=== PATIENT | female | born 1940 | race Caucasian/White ===

== ENCOUNTER 2019-03-29 10:07 | Outpatient (CLI) | payer MEDICARE ==
[2019-03-29] MEDS ORDERED: LISI40TA PO (10:55)
[2019-03-29] MEDS ORDERED: AMLO10TA8 PO (10:55)
[2019-03-29] MEDS ORDERED: ASPI-496 PO (10:55)
[2019-03-29] MEDS ORDERED: LOVA40TA2 PO (10:55)
[2019-03-29] MEDS ORDERED: MULT-658 PO (11:09)
[2019-03-29] MEDS ORDERED: OMEG1CAP6 PO (11:09)
[2019-03-29] MEDS ORDERED: FLAX340P PO (11:09)
[2019-03-29] MEDS ORDERED: Turmeric PO (11:09)
[2019-03-29] MEDS ORDERED: CALC1CAP8 PO (11:09)
== END 2019-03-29 23:59 | disposition home or self-care (01) ==
LOC: STAR 10:07
PROVIDERS: ATTEND Surgery
DX: Z01.810 Encounter for preprocedural cardiovascular examination (principal); C73 Malignant neoplasm of thyroid gland
CPT/HCPCS: 93005

== ENCOUNTER 2019-04-02 05:59 | Day surgery (SDC) | payer MEDICARE ==
[~2019-04-02] VITALS: Ht 156.2 cm; Wt 76.6 kg
[~2019-04-02 05:59] MED LIST: AMLO10TA8 PO; ASPI-496 PO; CALC1CAP8 PO; FLAX340P PO; LISI40TA PO; LOVA40TA2 PO; MULT-658 PO; OMEG1CAP6 PO; Turmeric PO
[2019-04-02] MEDS ORDERED: LACTATED RINGERS 1,000 ML IV SCH (06:59)
[2019-04-02] MEDS ORDERED: MIDAZOLAM 1 MG/ML, 2ML ONE (07:15)
[2019-04-02] MEDS ORDERED: FENTANYL PF 250 MCG/5ML ONE (07:16)
[2019-04-02] MEDS ORDERED: LIDOCAINE 2%, 6 ML JEL.PF.APP MM ONE (07:16)
[2019-04-02] MEDS ORDERED: PROPOFOL 10 MG/ML, 20ML ONE (07:16)
[2019-04-02] MEDS ORDERED: DEXAMETHASONE 4 MG/ML, 1ML ONE ×2 (07:18)
[2019-04-02] MEDS ORDERED: ROCURONIUM 10MG/ML,5ML ONE (07:18)
[2019-04-02] MEDS ORDERED: SUCCINYLCHOLINE 20 MG/ML, 10ML ONE (07:18)
[2019-04-02] MEDS ORDERED: CEFAZOLIN 1,000 MG ONE ×2 (07:18)
[2019-04-02] MEDS ORDERED: LIDOCAINE-MPF 2% ,5ML ONE (07:18)
[2019-04-02] MEDS ORDERED: EPHEDRINE 50 MG/ML, 1ML ONE (07:27)
[2019-04-02] MEDS ORDERED: HALOPERIDOL 5 MG/ML IV PRN (08:00)
[2019-04-02] MEDS ORDERED: EPHEDRINE 50 MG/ML, 1ML IVPush PRN (08:00)
[2019-04-02] MEDS ORDERED: MEPERIDINE/PF 25MG/0.5ML IVPush PRN (08:00)
[2019-04-02] MEDS ORDERED: ALBUTEROL SULFATE 2.5 MG/3 ML NPPB PRN (08:00)
[2019-04-02] MEDS ORDERED: ONDANSETRON 2MG/ML, 2ML IV PRN (08:00)
[2019-04-02] MEDS ORDERED: MORPHINE SULFATE 4 MG/ML, 1ML IVPush PRN (08:00)
[2019-04-02] MEDS ORDERED: DIAZEPAM 5 MG/ML, 2ML IVPush PRN (08:00)
[2019-04-02] MEDS ORDERED: ONDANSETRON ODT 8 MG PO PRN (08:00)
[2019-04-02] MEDS ORDERED: PROMETHAZINE 25 MG/ML, 1ML IV PRN (08:00)
[2019-04-02] MEDS ORDERED: PROMETHAZINE 12.5 MG SUPP PR PRN (08:00)
[2019-04-02] MEDS ORDERED: MIDAZOLAM 1 MG/ML, 2ML IV PRN (08:00)
[2019-04-02] MEDS ORDERED: hydrALAzine 20 MG/ML, 1ML IV PRN (08:00)
[2019-04-02] MEDS ORDERED: ACETAMINOPHEN 325 MG TABLET PO PRN (08:00)
[2019-04-02] MEDS ORDERED: ONDANSETRON 2MG/ML, 2ML ONE ×2 (08:46)
[2019-04-02] MEDS ORDERED: FENTANYL PF 100 MCG/2ML ONE (09:25)
[2019-04-02] MEDS: FENTANYL PF 100 MCG/2ML IV PRN ×3 (09:27→09:44)
[2019-04-02] MEDS ORDERED: OXYcodone 5 MG/5 ML ORAL.SOL UDC ONE ×2 (09:33→09:59)
[2019-04-02] MEDS: OXYcodone 5 MG/5 ML ORAL.SOL UDC PO PRN ×2 (09:35→10:00)
[2019-04-02] MEDS ORDERED: HYDROmorphone 2 MG/ML, 1ML ONE (09:56)
[2019-04-02] MEDS: HYDROmorphone 2 MG/ML, 1ML IVPush PRN ×3 (09:58→10:16)
[2019-04-02] MEDS ORDERED: ACETAMINOPHEN 650 MG/20.3 ML UDC ONE (10:02)
[2019-04-02] MEDS: LABETALOL 5MG/ML, 20ML IV PRN ×2 (10:06→10:23)
[2019-04-02 11:05] VITALS: BP 162/73
[2019-04-02] MEDS ORDERED: HYDROcodone/APAP 5/325 TABLET PO PRN (11:30)
[2019-04-02] MEDS: LACTATED RINGERS 1,000 ML IV SCH (14:55)
[2019-04-02 16:41] VITALS: BP 148/72
[2019-04-02 17:58] LABS: ALBUMIN 3.7 g/dL (3.4-5.0); CALCIUM 8.1 mg/dL (8.5-10.1)
[2019-04-02 18:48] VITALS: BP 159/67
[2019-04-02] MEDS ORDERED: LOVASTATIN 40 MG TABLET PO SCH (21:00)
[2019-04-02] MEDS: LISINOPRIL 40 MG TABLET PO SCH (22:06)
[2019-04-03 00:49] VITALS: BP 112/63
[2019-04-03 00:51] LABS: ALBUMIN 3.5 g/dL (3.4-5.0); CALCIUM 7.9 mg/dL (8.5-10.1)
[2019-04-03] MEDS: LACTATED RINGERS 1,000 ML IV SCH (03:20)
[2019-04-03] MEDS ORDERED: ASPIRIN 81 MG TABLET EC PO SCH (06:00)
[2019-04-03] MEDS ORDERED: CALC200T24 PO (06:59)
[2019-04-03] MEDS ORDERED: LEVO137T2 PO (06:59)
[2019-04-03] MEDS ORDERED: LEVOTHYROXINE 137 MCG TABLET PO SCH (07:00)
[2019-04-03] MEDS ORDERED: CALCIUM CARBONATE 500 MG TAB.CHEW PO PRN (07:00)
[2019-04-03 07:31] LABS: ALBUMIN 3.4 g/dL (3.4-5.0); CALCIUM 7.8 mg/dL (8.5-10.1)
[2019-04-03] MEDS: LISINOPRIL 40 MG TABLET PO SCH (07:34)
[2019-04-03 08:08] VITALS: BP 112/58
[2019-04-03] MEDS ORDERED: AMLODIPINE 10 MG TAB PO SCH (09:00)
[2019-04-03] MEDS ORDERED: OMEGA-3/FISH OIL CAPSULE PO SCH (09:00)
[2019-04-03] MEDS ORDERED: MULTIVITAMIN 1 TABLET PO SCH (09:00)
[2019-04-03 12:01] VITALS: BP 111/58
[2019-04-03 12:12] LABS: ALBUMIN 3.6 g/dL (3.4-5.0); CALCIUM 7.9 mg/dL (8.5-10.1)
== END 2019-04-03 13:51 | disposition home or self-care (01) ==
LOC: OUT 05:59 → 4NOR 10:53 → UNDOADMIN 11:07 → OUT 11:44 → DCLOUNGE 04-03 13:25 → 4NOR 04-03 13:25 → OUT 04-03 13:51 → UNDODISIN 04-03 13:51
PROVIDERS: ATTEND Surgery
DX: C73 Malignant neoplasm of thyroid gland (principal); C77.0 Secondary and unspecified malignant neoplasm of lymph nodes of head, face and neck; E06.3 Autoimmune thyroiditis; I10 Essential (primary) hypertension; E78.5 Hyperlipidemia, unspecified; Z72.89 Other problems related to lifestyle; Z79.82 Long term (current) use of aspirin; Z79.899 Other long term (current) drug therapy; Z90.49 Acquired absence of other specified parts of digestive tract; Z98.890 Other specified postprocedural states; Z83.3 Family history of diabetes mellitus; Z82.49 Family history of ischemic heart disease and other diseases of the circulatory system; Z80.0 Family history of malignant neoplasm of digestive organs
CPT/HCPCS: 36415; 60252; 60512; 82040; 82310; 84432; 86800; 88305; 88307; C1760; J0330; J0690; J1100; J1170; J2250; J2405; J2704; J3010; J7120; G0378